=== PATIENT | female | born 1970 | race Caucasian/White ===

== ENCOUNTER 2016-05-01 16:45 | Emergency (ER) | payer OTHER ==
[2016-05-01 17:12] VITALS: BP 109/55; PULSE 69; RESP 20; TEMP 98.6; O2SAT 97
--- NOTE | 2016-05-01 18:06 | UCPHY ---
H & P Patient Type: Established Chief Complaint Nursing Narrative: Right upper abdominal pain. Syncopal episode , vomitting. Time Seen by Provider: 05/01/16 17:16 HPI/ROS: 46-year-old female presents complaining of passing out after pulling off the road. She did 60 pushups yesterday. Today while driving home from her daughter's mental health appointment she began having right-sided rib pain that was very sharp and stabbing in nature, she started to breathe very deeply to try to relieve the pain and then suddenly began to feel very dizzy, warm as if the room was closing in on her. She pulled over, after pulling over her daughter states that she briefly passed out , she looked like a marionette, the daughter was going to call 911 at that point when suddenly her mother awoke. She then vomited x1. The patient recalls having a fainting episode 1 other time in her life and that was when her daughter was a tiny baby and required an ultrasound. Review of systems General no fever no chills no weakness HEENT no eye pain no eye discharge. No eye redness, no sore throat Respiratory no cough, no shortness of breath Cardiac no chest pain, no peripheral edema GI no abdominal pain, no diarrhea, no constipation, no nausea, no vomiting no flank pain, no hematuria, no dysuria Musculoskeletal positive myalgias, no joint pain Heme no easy bruising, no easy bleeding Endo no polyuria, no polydipsia Skin no rashes, no pruritus Neuro no syncope, no dizziness, no headaches Psych is no suicidal ideation, no homicidal ideation Source: Patient - Personal History LMP (Females 10-55): Over 28 Days Ago Current Tetanus/Diphtheria Vaccine: No Current Tetanus Diphtheria and Acellular Pertussis (TDAP): No - Medical/Surgical History Hx Asthma: No Hx Chronic Respiratory Disease: No Hx Diabetes: No Hx Cardiac Disease: No Hx Renal Disease: No Hx Cirrhosis: No Hx Alcoholism: No Hx HIV/AIDS: No Hx Splenectomy or Spleen Trauma: No Other PMH: denies - Family History Significant Family History: No pertinent family hx - Social History Smoking Status: Former smoker Alcohol Use: Rarely Drug Use: None - Physical Exam Exam: 46-year-old female extremely anxious, nontoxic appearance, afebrile HEENT atraumatic normocephalic, extraocular muscles intact, anicteric Oropharynx negative for erythema negative exudate, tolerating her own secretions Neck supple no meningismus Lungs clear to auscultation bilaterally Heart regular rate and rhythm without murmur rub or gallop Abdomen nondistended normoactive bowel sounds soft nontender Back no CVA tenderness, no step-offs, no spinal tenderness Extremities no cyanosis clubbing or edema Neuro alert and oriented, no focal deficits Constitutional: Initial Vital Signs Temperature (C) 37.0 C 05/01/16 17:01 Heart Rate 69 05/01/16 17:01 Respiratory Rate 20 05/01/16 17:01 Blood Pressure 109/55 L 05/01/16 17:01 O2 Sat (%) 97 05/01/16 17:01 Allergies/Adverse Reactions: No Known Allergies Allergy (Unverified 05/01/16 17:12) Home Medications: Medication Instructions Recorded Herbal Drugs 05/01/16 Medical Decision Making - Diagnostics EKG Interpretation: Normal sinus rhythm Imaging: Chest x-ray negative ED Course/Re-evaluation: Patient seen and evaluated for syncopal episode Differential diagnosis Common fainting/vasovagal, pulmonary embolus, myocardial infarction, dehydration , orthostasis, arrhythmia EKG normal sinus rhythm no evidence of arrhythmia Laboratories troponin negative time err negative Impression Vasovagal syncope Plan Discharge home Advised follow-up with primary care physician - Data Points Laboratory Results: Laboratory Results 05/01/16 18:14 05/01/16 18:14 Departure - Departure Disposition: Home, Routine, Self-Care Clinical Impression: Vasovagal syncope Condition: Good Instructions: Syncope (ED) Referrals: Citlalli Burrows MD [Primary Care Provider] - As per Instructions - PQRS PQRS Measurement: na
--- NOTE | 2016-05-01 18:12 | CPEKG ---
Heart Rate: 75 RR Interval: 800 P-R Interval: 156 QRSD Interval: 94 QT Interval: 396 QTC Interval: 443 P Knox: 75 QRS Knox: 28 T Wave Knox: 19 EKG Severity - NORMAL ECG - EKG Impression: SINUS RHYTHM Electronically Signed By: Simon Vital 02-May-2016 09:34:37
[2016-05-01 18:21] LABS: % IMMATURE GRANULYOCYTES 0.3 % (0.0-1.1); ABSOLUTE IMMATURE GRANULOCYTES 0.02 10^3/uL (0.00-0.10); ADD DIFF? NO; ADD MORPH? NO; ADD SCAN? NO; ATYPICAL LYMPHOCYTE FLAG 0 (0-99); FRAGMENT RBC FLAG 0 (0-99); HEMATOCRIT 39.3 % (38.0-47.0); HEMOGLOBIN 13.3 g/dL (12.6-16.3); LEFT SHIFT FLG 0 (0-99); LIPEMIA HEMOLYSIS FLAG 90 (0-99); MEAN CELL HEMOGLOBIN 31.6 pg (27.9-34.1); MEAN CELL HEMOGLOBIN CONCENTR. 33.8 g/dL (32.4-36.7); MEAN CELL VOLUME 93.3 fL (81.5-99.8); MEAN PLATELET VOLUME 9.7 fL (8.7-11.7); PLATELET CLUMPS FLAG 10 (0-99); PLATELET COUNT 279 10^3/uL (150-400); RED BLOOD CELL COUNT 4.21 10^6/uL (4.18-5.33); RED CELL DISTRIBUTION WIDTH 13.6 % (11.5-15.2)
[2016-05-01 18:46] LABS: TROPONIN I < 0.012 ng/mL (0-0.034)
[2016-05-01 19:04] LABS: ALANINE AMINOTRANSFERASE 18 IU/L (9-52); ALBUMIN 3.6 g/dL (3.5-5.0); ALKALINE PHOSPHATASE 43 IU/L (38-126); ANION GAP 7 mEq/L (8-16); ASPARTATE AMINOTRANSFERASE 18 IU/L (14-46); BILIRUBIN,TOTAL 0.5 mg/dL (0.1-1.4); CARBON DIOXIDE 28 mEq/l (22-31); CHLORIDE 104 mEq/L (97-110); CREATININE 0.7 mg/dL (0.6-1.0); GLOMERULAR FILTRATION RATE > 60; GLUCOSE 93 mg/dL (70-100); POTASSIUM 3.9 mEq/L (3.5-5.2); SODIUM 139 mEq/L (134-144); TOTAL PROTEIN 6.3 g/dL (6.3-8.2)
== END 2016-05-01 19:32 | disposition home or self-care (01) ==
LOC: CED 16:45
DX: R55 Syncope and collapse (principal); Z87.891 Personal history of nicotine dependence
CPT/HCPCS: 80053-PO; 82550-PO; 84484-PO; 85025-PO; 85378-PO; G0463-PO

== ENCOUNTER → 2016-11-14 | Outpatient (CLI) | payer OTHER | LOC: CIMAGING 14:08 | PROVIDERS: ATTEND Family Medicine | DX: Z12.31 Encounter for screening mammogram for malignant neoplasm of breast (principal) | CPT/HCPCS: G0202 ==